=== PATIENT | male | born 1960 | race African-American/Black ===

== ENCOUNTER 2021-10-09 05:29 | Day surgery (SDC) | payer BC, OTHER ==
[2021-10-05 13:52] VITALS: BMI 28.3
[2021-10-09] MEDS ORDERED: BUPIVACAINE HCL/PF 0.5% (5MG/ML) 10 ML VIAL ONE (07:44)
[2021-10-09] MEDS ORDERED: TRIAMCINOLONE ACET 40MG/1ML VIAL ONE (07:44)
[2021-10-09] MEDS ORDERED: BUPIVACAINE HCL/PF 0.75% 10 ML VIAL ONE (07:44)
[2021-10-09] MEDS ORDERED: LIDOCAINE HCL/PF 1% SDV 5ML VIAL ONE (07:45)
[2021-10-09] MEDS ORDERED: IOHEXOL 180 MG/1 ML ML IJ ONE (12:40)
[2021-10-09] MEDS ORDERED: LIDOCAINE HCL 1% PRESERVATIVE FREE - 30ML VIAL IJ ONE (12:41)
[2021-10-09] MEDS ORDERED: BUPIVACAINE HCL/PF 0.75% 10 ML VIAL NR ONE (12:41)
[2021-10-09 14:10] VITALS: BP 116/71; PULSE 62; TEMP 98.9
== END 2021-10-09 13:05 | disposition home or self-care (01) ==
LOC: JASU-SURG 05:29
PROVIDERS: ATTEND Pain Medicine Pain Medicine
PROC: BR16YZZ Fluoroscopy of Lumbar Facet Joint(s) using Other Contrast (ICD-10-PCS; 2021-10-09)
PROC: 3E0T3BZ Introduction of Anesthetic Agent into Peripheral Nerves and Plexi, Percutaneous Approach (ICD-10-PCS; principal; 2021-10-09 12:30)
DX: M47.816 Spondylosis without myelopathy or radiculopathy, lumbar region (principal)
CPT/HCPCS: 76000-TC-FY

== ENCOUNTER 2021-11-06 05:34 | Day surgery (SDC) | payer BC, OTHER ==
[2021-11-05 15:09] VITALS: BMI 28.5
[~2021-11-06 05:34] MED LIST: BUPIVACAINE HCL/PF 0.75% 10 ML VIAL NR ONE
[2021-11-06 09:42] VITALS: TEMP 98.8
[2021-11-06] MEDS ORDERED: LIDOCAINE HCL 1% PRESERVATIVE FREE - 30ML VIAL IJ ONE (11:22)
[2021-11-06] MEDS ORDERED: IOHEXOL 180 MG/1 ML ML IJ ONE (11:23)
[2021-11-06] MEDS ORDERED: BUPIVACAINE HCL/PF 0.75% 10 ML VIAL NR ONE (11:28)
[2021-11-06 11:47] VITALS: BP 111/72; PULSE 60
== END 2021-11-06 12:35 | disposition home or self-care (01) ==
LOC: JASU-SURG 05:34
PROVIDERS: ATTEND Pain Medicine Pain Medicine
PROC: 3E0T33Z Introduction of Anti-inflammatory into Peripheral Nerves and Plexi, Percutaneous Approach (ICD-10-PCS; 2021-11-06)
PROC: 3E0T3BZ Introduction of Anesthetic Agent into Peripheral Nerves and Plexi, Percutaneous Approach (ICD-10-PCS; principal; 2021-11-06 11:30)
DX: M47.26 Other spondylosis with radiculopathy, lumbar region (principal)
CPT/HCPCS: 76000-TC-FY

== ENCOUNTER 2021-12-11 04:22 | Day surgery (SDC) | payer BC, OTHER ==
[2021-12-07 13:56] VITALS: BMI 28.5
[2021-12-11] MEDS ORDERED: LIDOCAINE HCL 2% (20ML MULTI-DOSE VIAL) ONE (07:26)
[2021-12-11] MEDS ORDERED: BUPIVACAINE HCL/PF 0.75% 10 ML VIAL ONE (07:26)
[2021-12-11] MEDS ORDERED: DEXAMETHASONE SOD PHOSPHATE 10 MG/1 ML VIAL ONE ×2 (07:27→12:28)
[2021-12-11] MEDS ORDERED: LIDOCAINE HCL/PF 2% SDV 5ML VIAL ONE (12:30)
[2021-12-11] MEDS ORDERED: LIDOCAINE HCL/PF 2% SDV 5ML VIAL INF ONE (13:44)
[2021-12-11] MEDS ORDERED: DEXAMETHASONE SOD PHOSPHATE 10 MG/1 ML VIAL IVPUSH ONE (13:44)
[2021-12-11] MEDS ORDERED: LIDOCAINE HCL 1% PRESERVATIVE FREE - 30ML VIAL IJ ONE (13:44)
[2021-12-11] MEDS ORDERED: BUPIVACAINE HCL/PF 0.75% 10 ML VIAL NR ONE (13:44)
[2021-12-11 14:58] VITALS: BP 123/73; PULSE 60; TEMP 98
== END 2021-12-11 15:00 | disposition home or self-care (01) ==
LOC: JASU-SURG 04:22
PROVIDERS: ATTEND Pain Medicine Pain Medicine
PROC: 3E0T3TZ Introduction of Destructive Agent into Peripheral Nerves and Plexi, Percutaneous Approach (ICD-10-PCS; principal; 2021-12-11 15:30)
PROC: BR16YZZ Fluoroscopy of Lumbar Facet Joint(s) using Other Contrast (ICD-10-PCS; 2021-12-11 15:30)
DX: M47.816 Spondylosis without myelopathy or radiculopathy, lumbar region (principal); I10 Essential (primary) hypertension
CPT/HCPCS: 76000-TC-FY; J1100

== ENCOUNTER 2022-01-08 04:04 | Day surgery (SDC) | payer BC, OTHER ==
[2022-01-06 09:33] VITALS: BMI 28.5
[2022-01-08] MEDS ORDERED: LIDOCAINE HCL/PF 1% SDV 5ML VIAL ONE (07:09)
[2022-01-08] MEDS ORDERED: BUPIVACAINE HCL/PF 0.75% 10 ML VIAL ONE (07:09)
[2022-01-08] MEDS ORDERED: DEXAMETHASONE SOD PHOSPHATE 10 MG/1 ML VIAL ONE (07:10)
[2022-01-08] MEDS ORDERED: LIDOCAINE HCL/PF 2% SDV 5ML VIAL ONE (07:19)
[2022-01-08] MEDS ORDERED: BUPIVACAINE HCL/PF 0.75% 10 ML VIAL NR ONE (08:16)
[2022-01-08] MEDS ORDERED: LIDOCAINE HCL 1% PRESERVATIVE FREE - 30ML VIAL IJ ONE (08:17)
[2022-01-08] MEDS ORDERED: LIDOCAINE HCL/PF 2% SDV 5ML VIAL INF ONE (08:17)
[2022-01-08] MEDS ORDERED: DEXAMETHASONE SOD PHOSPHATE 10 MG/1 ML VIAL IVPUSH ONE (08:18)
[2022-01-08 10:51] VITALS: TEMP 97.9
[2022-01-08 11:12] VITALS: BP 120/73; PULSE 58
== END 2022-01-08 09:20 | disposition home or self-care (01) ==
LOC: JASU-SURG 04:04
PROVIDERS: ATTEND Pain Medicine Pain Medicine
PROC: 3E0T3TZ Introduction of Destructive Agent into Peripheral Nerves and Plexi, Percutaneous Approach (ICD-10-PCS; principal; 2022-01-08 08:00)
DX: M47.816 Spondylosis without myelopathy or radiculopathy, lumbar region (principal)
CPT/HCPCS: 76000-TC-FY; J1100

== ENCOUNTER 2025-01-15 10:49 | Emergency (ER) | payer BC, OTHER ==
[2025-01-15 11:03] VITALS: BP 125/82; PULSE 96; RESP 18; TEMP 99.3; BMI 27.6
[2025-01-15] MEDS ORDERED: ACETAMINOPHEN 325 MG TABLET (FP) ONE (11:52)
[2025-01-15] MEDS ORDERED: IBUPROFEN 600 MG TABLET (FP) PO ONE (11:52)
[2025-01-15] MEDS: IBUPROFEN 600 MG TABLET (FP) PO ONE (11:54)
[2025-01-15] MEDS: ACETAMINOPHEN 325 MG TABLET (FP) PO ONE (11:55)
== END 2025-01-15 14:06 | disposition home or self-care (01) ==
LOC: JERFT 10:49
DX: S16.1XXA Strain of muscle, fascia and tendon at neck level, initial encounter (principal); M54.6 Pain in thoracic spine; M54.50 Low back pain, unspecified; V87.7XXA Person injured in collision between other specified motor vehicles (traffic), initial encounter; Y92.410 Unspecified street and highway as the place of occurrence of the external cause
CPT/HCPCS: 72040-TC; 99283-25